=== PATIENT | female | born 1990 | race Two or more races ===

== ENCOUNTER 2022-12-26 21:36 | Emergency (ER) | payer MEDICAID ==
[~2022-12-26] VITALS: Ht 157.5 cm; Wt 70.3 kg
[2022-12-26 22:09] LABS: HEMATOCRIT 38.4 % (31.2-41.9); MEAN CORPUSCULAR HEMOGLOBIN 30.6 uug (24.7-32.8); MEAN CORPUSCULAR VOLUME 90.3 fL (75.5-95.3); PLATELET COUNT (AUTO) 264 K/uL (179-408)
[2022-12-26 22:24] LABS: ALANINE AMINOTRANSFERASE 28 U/L (14-59); ALKALINE PHOSPHATASE 62 U/L (50-136); ASPARTATE AMINOTRANSFERASE 15 U/L (15-37); BILIRUBIN,DIRECT 0.2 mg/dL (0.0-0.2); BILIRUBIN,TOTAL 0.6 mg/dL (0.2-1.0); CARBON DIOXIDE 29 mmol/L (21-32); CHLORIDE 102 mmol/L (98-107); CREATININE 0.6 mg/dL (0.6-1.3); GLUCOSE 93 mg/dL (74-106); POTASSIUM 3.2 mmol/L (3.5-5.1); TOTAL PROTEIN, SERUM 7.1 g/dL (6.4-8.2); UREA NITROGEN, BLOOD 13 mg/dL (7-18)
[2022-12-26 22:29] LABS: ETHANOL < 3 MG/DL (0-0)
[2022-12-26 22:37] LABS: ACETAMINOPHEN < 2.0 ug/mL (10-30)
[2022-12-26] MEDS ORDERED: POTASSIUM BICARBONATE/CIT AC 25 MEQ TABLET.EFF PO ONE (23:00)
[2022-12-26] MEDS ORDERED: POTASSIUM BICARBONATE/CIT AC 25 MEQ TABLET.EFF ONE (23:28)
[2022-12-27] MEDS ORDERED: IBUPROFEN 600 MG TABLET PO ONE (02:30)
[2022-12-27] MEDS ORDERED: IBUPROFEN 600 MG TABLET ONE (02:32)
--- NOTE | 2022-12-27 04:24 | NUR ---
Patient is in room sleeping.
--- NOTE | 2022-12-27 07:17 | NUR ---
Called social sciences department chair, Kelly Boateng, to come consult with the patient and left a voice message.
--- NOTE | 2022-12-27 07:18 | NUR ---
Endorsed patient to Maty GARZA.
[2022-12-27] MEDS ORDERED: BUPR1FIL3 SL (08:21)
[2022-12-27] MEDS ORDERED: NALO4SPR BNOSTRILS (08:22)
[2022-12-27] MEDS ORDERED: BUPRENORPHINE HCL 2 MG TAB.SUBL SL ONE ×4 (08:30→11:24)
--- NOTE | 2022-12-27 08:30 | NUR ---
Breakfast tray at bedside. latex foam worker Kelly is at bedside.
--- NOTE | 2022-12-27 09:17 | NUR ---
Per Kelly, this patient's mother is coming just before noon today. Mother is coming from [place].
--- NOTE | 2022-12-27 09:30 | NUR ---
Social Work consult was requested for a patient in the emergency room. Patient is a 32-year-old female. Patient is alert and oriented X4. Patient presents with depressed mood and congruent affect. Patient states her primary contact is her mother, Naheed ([phone]) who lives in [place]. Patient states she was living [place] fitrish [place] [address] [facility] [address] and will now go stay with her mother, Naheed ([phone]). Patient states she has a history of benzodiazepine abuse, and there is no toxicology report. Patient states she last used about 36 hours ago and SW spoke with Dr. Guillaume, and she provided the patient with buprenorphine and a prescription as well. flat screen worker provided support with motivational interviewing, education regarding opioid dependence, brief intervention and referral to medication assisted treatment to [address] [address] ([phone]), [address] [address] ([phone]), and [place] [id number] . Patient appears motivated for treatment and was appreciative of the resources. Patient states she has a history of anxiety and patient denies suicidal or homicidal ideation. Patient states she "wants to live for her family." Patient states she is grieving the loss of her fitrish who yesterday from an accidental overdose and SW provided the patient the local mental health resource for [facility] [address] [address] ( ) in [place]. SW provided emotional support, validation, and coping strategies. Patients plan for discharge is for her mother, Naheed ([phone]) to come to the hospital to pick her up. SW spoke to the patient's mother, Naheed ([phone]) at bedside and she states she will stay with the patient at all times and take care of her. Report was given to patients nurse Rutledge and Dr. Guillaume.
--- NOTE | 2022-12-27 10:47 | NUR ---
Patient's mother is now here in ER. notified. molding utility worker Kelly is at patient's bedside as well.
[2022-12-27] MEDS ORDERED: ONDANSETRON ODT 4 MG TAB.RAPDIS SL ONE (11:15)
[2022-12-27] MEDS ORDERED: ACETAMINOPHEN 325 MG TABLET PO ONE (11:15)
[2022-12-27] MEDS ORDERED: ONDANSETRON ODT 4 MG TAB.RAPDIS ONE (11:24)
[2022-12-27] MEDS ORDERED: ACETAMINOPHEN 325 MG TABLET ONE (11:24)
--- NOTE | 2022-12-27 11:35 | NUR ---
Patient discharged to home in stable condition with steady gait. Written and verbal after care instructions given to patient and mother. Patient and family verbalized understanding and compliance of instructions. Stressed follow up with primary doctor and addiction/rehab doctor or return to ER for worsening s/s.
[2022-12-27 11:36] VITALS: BP 120/66
== END 2022-12-27 11:37 | disposition home or self-care (01) ==
LOC: EDBD 21:36 → ER 21:36
DX: F11.10 Opioid abuse, uncomplicated (principal); Z59.00 Homelessness unspecified; M54.9 Dorsalgia, unspecified; F10.10 Alcohol abuse, uncomplicated; Y90.0 Blood alcohol level of less than 20 mg/100 ml
CPT/HCPCS: 36415; 85025; A4663; G0480; Q0162